=== PATIENT | female | born 1960 | race African-American/Black ===

== ENCOUNTER 2017-12-31 05:00 | Emergency (ER) | payer MEDICARE, MEDICAID ==
[~2017-12-31] VITALS: Ht 170.2 cm; Wt 106.6 kg
[2017-12-31] MEDS ORDERED: NORVASC2.5 MG (05:11)
[2017-12-31] MEDS ORDERED: METFORMIN HCL500 MG (05:12)
[2017-12-31] MEDS ORDERED: SYNTHROID50 MCG (05:12)
[2017-12-31] MEDS ORDERED: ATORVASTATIN CA40 MG (05:13)
[2017-12-31] MEDS ORDERED: SYMBICORT160 MCG/4. (05:14)
[2017-12-31] MEDS ORDERED: VENTOLIN HFA 1818 GM (05:14)
[2017-12-31] MEDS ORDERED: LISINOPRIL2.5 MG (05:15)
[2017-12-31] MEDS ORDERED: LASIX 40 MG TAB40 M2 (05:15)
[2017-12-31] MEDS ORDERED: NEURONTIN 300300 M1 (05:16)
[2017-12-31 06:02] LABS: ABSOLUTE BASOPHILS 0.1 thou/uL (0.0-0.2); ABSOLUTE EOSINOPHILS 0.2 thou/uL (0.0-0.7); ABSOLUTE LYMPHOCYTES 1.4 thou/uL (0.8-5.3); ABSOLUTE MONOCYTES 0.5 thou/uL (0.0-1.2); ABSOLUTE NEUTROPHILS 4.3 thou/uL (1.6-8.1); BASOPHILS 0.9 %; EOSINOPHILS 2.7 %; HEMATOCRIT 46.3 % (37.0-47.0); HEMOGLOBIN 14.7 gm/dL (12.0-15.0); MCH 26.8 pg (26.0-34.0); MCHC 31.8 g/dL (28.0-37.0); MCV 84.5 fL (80.0-100.0); MONOCYTES 7.6 %; MPV 9.9 fl. (7.2-11.1); NUCLEATED RBCS 0 /100WBC; PLATELET COUNT* 203 thou/uL (150-400); POLYS 66.8 %; RBC 5.48 mil/uL (4.20-5.00); RDW-CV 16.6 % (10.5-14.5); WBC 6.4 thou/uL (4.0-11.0)
[2017-12-31 06:07] LABS: CREATININE 1.3 mg/dL (0.6-1.3); POTASSIUM 3.3 mmol/L (3.5-5.1)
[2017-12-31 06:11] LABS: ALBUMIN 3.2 g/dL (3.4-5.0); TOTAL BILIRUBIN 0.2 mg/dL (<0.1-1.0); TOTAL PROTEIN 7.1 g/dL (6.4-8.2)
[2017-12-31] MEDS ORDERED: IBUPROFEN 800800 MG PO (06:49)
[2017-12-31] MEDS ORDERED: PENICILLIN V P500 MG PO (06:49)
[2017-12-31] MEDS ORDERED: NORCO 5-325 TA1 EACH PO (06:49)
[2017-12-31 07:35] VITALS: BP 158/95
== END 2017-12-31 07:37 | disposition home or self-care (01) ==
LOC: M.ERS 05:00
PROVIDERS: Personal Emergency Response Attendant
DX: K02.9 Dental caries, unspecified (principal); I11.0 Hypertensive heart disease with heart failure; I50.9 Heart failure, unspecified; E11.9 Type 2 diabetes mellitus without complications; J45.909 Unspecified asthma, uncomplicated; E89.0 Postprocedural hypothyroidism; F17.210 Nicotine dependence, cigarettes, uncomplicated; Z88.2 Allergy status to sulfonamides; Z88.5 Allergy status to narcotic agent; Z88.8 Allergy status to other drugs, medicaments and biological substances; Z98.890 Other specified postprocedural states; Z90.710 Acquired absence of both cervix and uterus

== ENCOUNTER 2018-03-10 21:19 | Emergency (ER) | payer MEDICARE, MEDICAID ==
[~2018-03-10] VITALS: Ht 170.2 cm; Wt 108.9 kg
[~2018-03-10 21:19] MED LIST: ATORVASTATIN CA40 MG; IBUPROFEN 800800 MG PO; LASIX 40 MG TAB40 M2; LISINOPRIL2.5 MG; METFORMIN HCL500 MG; NEURONTIN 300300 M1; NORCO 5-325 TA1 EACH PO; NORVASC2.5 MG; PENICILLIN V P500 MG PO; SYMBICORT160 MCG/4.; SYNTHROID50 MCG; VENTOLIN HFA 1818 GM
[2018-03-10 21:39] LABS: ABSOLUTE BASOPHILS 0.1 thou/uL (0.0-0.2); ABSOLUTE EOSINOPHILS 0.2 thou/uL (0.0-0.7); ABSOLUTE LYMPHOCYTES 2.6 thou/uL (0.8-5.3); ABSOLUTE MONOCYTES 0.5 thou/uL (0.0-1.2); ABSOLUTE NEUTROPHILS 3.4 thou/uL (1.6-8.1); BASOPHILS 1.6 %; EOSINOPHILS 3.4 %; HEMATOCRIT 43.7 % (37.0-47.0); HEMOGLOBIN 13.9 gm/dL (12.0-15.0); LYMPHOCYTES 37.6 %; MCH 26.5 pg (26.0-34.0); MCHC 31.8 g/dL (28.0-37.0); MCV 83.2 fL (80.0-100.0); MONOCYTES 7.4 %; NUCLEATED RBCS 0 /100WBC; PLATELET COUNT* 254 thou/uL (150-400); RBC 5.26 mil/uL (4.20-5.00); RDW-CV 16.3 % (10.5-14.5); WBC 6.8 thou/uL (4.0-11.0)
[2018-03-10 21:50] LABS: PROTIME 10.5 Seconds (9.20-11.50)
[2018-03-10 21:54] LABS: ANION GAP 2 mmol/L (7-16); BUN 26 mg/dL (7-18); CALCIUM 8.8 mg/dL (8.5-10.1); CHLORIDE 105 mmol/L (98-107); CO2 36 mmol/L (21-32); CREATININE 1.2 mg/dL (0.6-1.3); GLUCOSE 94 mg/dL (70-99); POTASSIUM 4.5 mmol/L (3.5-5.1); SODIUM 143 mmol/L (136-145)
[2018-03-10 22:05] LABS: ALBUMIN 3.2 g/dL (3.4-5.0); ALKALINE PHOSPHATASE 71 U/L (46-116); MAGNESIUM 1.7 mg/dL (1.8-2.4); NT-PRO BRAIN NAT PEPTIDE 1122 pg/mL (<300); SGOT 22 U/L (15-37); SGPT 32 U/L (30-65); TOTAL BILIRUBIN 0.4 mg/dL (<0.1-1.0); TOTAL PROTEIN 6.7 g/dL (6.4-8.2); TROPONIN-I LEVEL <0.06 ng/mL (<0.06)
[2018-03-10 22:48] LABS: URINE BILIRUBIN NEGATIVE (Negative); URINE BLOOD NEGATIVE (Negative); URINE CLARITY CLEAR; URINE COLOR YELLOW; URINE GLUCOSE-RANDOM NEGATIVE (Negative); URINE KETONES NEGATIVE (Negative); URINE LEUKOCYTES-REFLEX NEGATIVE (Negative); URINE NITRITE-REFLEX NEGATIVE (Negative); URINE PROTEIN 1+ (Negative); URINE UROBILINOGEN 0.2 E.U./dl (0.2-1.0)
[2018-03-11 01:28] VITALS: BP 156/85
--- NOTE | 2018-03-11 10:24 | EKG ---
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1960 Requested By: Shyann Huff Order Number: [id number] MD: Jordy Fu Measurements Intervals [place] Rate: 99 P: 80 CT: 147 QRS: 59 QRSD: 91 T: 61 QT: 389 QTc: 500 Interpretive Statements Sinus tachycardia Atrial premature complex LAE, consider biatrial enlargement Left ventricular hypertrophy Borderline prolonged QT interval No previous ECG available for comparison Electronically Signed On 03-11-2018 10:24:04 [employer]EL[employer] by Jordy Fu [email or web address] <ELECTRONICALLY SIGNED> By: Jordy Fu MD, [facility] 03/11/18 1024 24 24 Jordy Fu MD, FAC /EPI
== END 2018-03-11 01:59 | disposition short-term general hospital (02) ==
LOC: M.ERS 21:19
PROVIDERS: Emergency Medicine
DX: I11.0 Hypertensive heart disease with heart failure (principal); I50.9 Heart failure, unspecified; I31.3 Pericardial effusion (noninflammatory); J44.9 Chronic obstructive pulmonary disease, unspecified; E11.9 Type 2 diabetes mellitus without complications; E89.0 Postprocedural hypothyroidism; F17.210 Nicotine dependence, cigarettes, uncomplicated; Z98.890 Other specified postprocedural states; Z90.710 Acquired absence of both cervix and uterus; Z88.5 Allergy status to narcotic agent; Z88.2 Allergy status to sulfonamides; Z88.8 Allergy status to other drugs, medicaments and biological substances

== ENCOUNTER 2018-06-02 01:32 | Emergency (ER) | payer MEDICARE, MEDICAID ==
[~2018-06-02] VITALS: Ht 170.2 cm; Wt 106.6 kg
[2018-06-02] MEDS ORDERED: AUGMENTIN 875-1 EACH PO (02:03)
[2018-06-02] MEDS ORDERED: PREDNISONE 20 M20 M1 PO (02:03)
[2018-06-02 02:36] VITALS: BP 154/60
== END 2018-06-02 02:38 | disposition home or self-care (01) ==
LOC: M.ERS 01:32
DX: J32.9 Chronic sinusitis, unspecified (principal); I11.0 Hypertensive heart disease with heart failure; I50.9 Heart failure, unspecified; J44.9 Chronic obstructive pulmonary disease, unspecified; Z90.710 Acquired absence of both cervix and uterus; E89.0 Postprocedural hypothyroidism; Z98.890 Other specified postprocedural states; F17.210 Nicotine dependence, cigarettes, uncomplicated; Z88.2 Allergy status to sulfonamides; Z88.5 Allergy status to narcotic agent; Z88.8 Allergy status to other drugs, medicaments and biological substances